=== PATIENT | male | born 1955 | race Caucasian/White ===

== ENCOUNTER 2017-12-29 21:20 | Observation (INO) | payer OTHER ==
[~2017-12-29] VITALS: Ht 170.2 cm; Wt 83.3 kg
[~2017-12-29 21:20] MED LIST: ASPIRIN BUFFER325 MG PO; COLACE100 MG PO; COREG25 M1 PO; LISINOPRIL40 MG PO; NORVASC10 MG PO; OxyCONTIN PO; PERCOCET 5/31 TABLET PO; SYNTHROID88 MCG PO; ZOCOR20 MG PO; oxyCODONE PO
[2017-12-29 21:47] LABS: HEMATOCRIT 41.4 % (38.0-50.0); HEMOGLOBIN 14.8 G/DL (12.5-16.6); MCH 34.6 PG (29.0-34.0); MCHC 35.7 G/DL (30.0-36.0); MCV 96.7 FL (86-99); PLATELET COUNT 198 K/uL (156-360); RBC DIS.WIDTH-CV 13.5 % (11.8-14.6); RBC DIS.WIDTH-SD 48.6 % (39-53); RED BLOOD COUNT 4.28 M/uL (4.00-5.50); WHITE BLOOD COUNT 7.4 K/uL (4.1-10.2)
[2017-12-29 21:57] LABS: PTT 26.3 SEC (25-37)
[2017-12-29 21:58] LABS: AMYLASE 62 IU/L (1-118)
[2017-12-29 21:59] LABS: CHLORIDE 106 mEq/L (99-109); POTASSIUM 4.4 mEq/L (3.7-5.4); SODIUM 140 mEq/L (136-147)
[2017-12-29 22:00] LABS: GLUCOSE 161 mg/dL (70-99)
[2017-12-29 22:04] LABS: CREATININE 1.5 mg/dL (0.6-1.3); GFR ESTIMATE (CALCULATED) 50 mL/min/ (58.99-99999)
[2017-12-29 22:05] LABS: UREA NITROGEN (BUN) 18 mg/dL (9-23)
[2017-12-29 22:07] LABS: LIPASE 11 U/L (1.0-51.0)
[2017-12-29 22:09] LABS: TROP-I INTERPRETATION NEGATIVE; TROPONIN-I 0.01 ng/mL (0.0-0.30)
[2017-12-29] MEDS ORDERED: NIFEDIPINE ER30 MG PO (23:10)
[2017-12-29] MEDS ORDERED: LISINOPRIL40 MG PO (23:10)
[2017-12-29] MEDS ORDERED: ASPIRIN325 MG PO (23:10)
[2017-12-29] MEDS ORDERED: NIFEDIPINE10 MG PO (23:11)
[2017-12-29] MEDS ORDERED: FISH OIL 1,0001 EAC7 PO (23:12)
[2017-12-30 00:35] VITALS: BP 138/75
[2017-12-30 02:44] LABS: HDL CHOLESTEROL 33 MG/DL (Desirable>=40); LDL CHOLESTEROL 176 mg/dL (Desirable<100); NON-HDL CHOLESTEROL 201 mg/dL (Desirable<160); TOTAL CHOLESTEROL 234 mg/dL (Desirable<200); TRIGLYCERIDES 127 MG/DL (Normal: <150)
[2017-12-30 05:29] VITALS: BP 127/78
[2017-12-30 08:42] VITALS: BP 175/85
[2017-12-30 10:17] LABS: HEMOGLOBIN A1c (GLYCOHEMOGLOB) 6.7 % (Below 5.7)
[2017-12-30 12:11] VITALS: BP 140/71
[2017-12-30 15:41] VITALS: BP 162/78
[2017-12-30 16:18] LABS: CHLORIDE 108 mEq/L (99-109); POTASSIUM 4.4 mEq/L (3.7-5.4); SODIUM 140 mEq/L (136-147)
[2017-12-30 16:19] LABS: GLUCOSE 142 mg/dL (70-99)
[2017-12-30 16:23] LABS: GFR ESTIMATE (CALCULATED) > 59 mL/min/ (58.99-99999)
[2017-12-30 16:24] LABS: UREA NITROGEN (BUN) 25 mg/dL (9-23)
[2017-12-30 20:20] VITALS: BP 179/83
[2017-12-31 00:35] VITALS: BP 126/76
[2017-12-31 04:10] VITALS: BP 124/95
[2017-12-31 07:20] VITALS: BP 146/88
[2017-12-31 11:32] VITALS: BP 135/81
[2018-01-01] MEDS ORDERED: PLAVIX75 MG PO (12:33)
== END 2017-12-31 12:12 | disposition home or self-care (01) ==
LOC: EME 21:20 → EDOF 23:34 → 4SOUTH 23:34 → EDOF 23:34 → 4SOUTH 12-30 00:19
PROVIDERS: Hospitalist; Physician Assistant Medical
PROC: B246ZZZ Ultrasonography of Right and Left Heart (ICD-10-PCS; principal; 2017-12-30)
DX: R42 Dizziness and giddiness (principal); R53.1 Weakness; N17.9 Acute kidney failure, unspecified; R94.02 Abnormal brain scan; I25.10 Atherosclerotic heart disease of native coronary artery without angina pectoris; Z95.5 Presence of coronary angioplasty implant and graft; I10 Essential (primary) hypertension; E78.5 Hyperlipidemia, unspecified; E03.9 Hypothyroidism, unspecified; Z90.49 Acquired absence of other specified parts of digestive tract; Z87.442 Personal history of urinary calculi; Z82.49 Family history of ischemic heart disease and other diseases of the circulatory system; Z79.82 Long term (current) use of aspirin; Z88.8 Allergy status to other drugs, medicaments and biological substances; R73.9 Hyperglycemia, unspecified; R91.8 Other nonspecific abnormal finding of lung field; I70.0 Atherosclerosis of aorta
CPT/HCPCS: 70450; 70551; 71046; 80048; 80061; 82150; 82948; 83036; 83690; 84484; 85027; 85610; 85730; 93005; 93306; 93880; 99281; 99285; G0378; J1644; J7030

== ENCOUNTER 2018-01-01 09:46 | Emergency (ER) | payer OTHER ==
[~2018-01-01] VITALS: Ht 170.2 cm; Wt 83.4 kg
[~2018-01-01 09:46] MED LIST changes: +ASPIRIN325 MG PO; +FISH OIL 1,0001 EAC7 PO; +NIFEDIPINE ER30 MG PO; +NIFEDIPINE10 MG PO
[2018-01-01 10:23] LABS: HEMATOCRIT 43.7 % (38.0-50.0); HEMOGLOBIN 15.5 G/DL (12.5-16.6); MCH 34.8 PG (29.0-34.0); MCHC 35.5 G/DL (30.0-36.0); PLATELET COUNT 201 K/uL (156-360); RBC DIS.WIDTH-CV 13.3 % (11.8-14.6); RBC DIS.WIDTH-SD 47.8 % (39-53); RED BLOOD COUNT 4.46 M/uL (4.00-5.50); WHITE BLOOD COUNT 6.2 K/uL (4.1-10.2)
[2018-01-01 10:33] LABS: CHLORIDE 108 mEq/L (99-109); POTASSIUM 4.9 mEq/L (3.7-5.4); SODIUM 138 mEq/L (136-147)
[2018-01-01 10:35] LABS: GLUCOSE 123 mg/dL (70-99)
[2018-01-01 10:39] LABS: CREATININE 1.3 mg/dL (0.6-1.3); GFR ESTIMATE (CALCULATED) > 59 mL/min/ (58.99-99999)
[2018-01-01 10:40] LABS: UREA NITROGEN (BUN) 26 mg/dL (9-23)
[2018-01-01] MEDS ORDERED: PLAVIX75 MG PO (12:33)
[2018-01-01 12:44] VITALS: BP 135/74
== END 2018-01-01 12:46 | disposition home or self-care (01) ==
LOC: EME 09:46
DX: G45.9 Transient cerebral ischemic attack, unspecified (principal); I10 Essential (primary) hypertension; E78.5 Hyperlipidemia, unspecified; I25.10 Atherosclerotic heart disease of native coronary artery without angina pectoris; Z95.5 Presence of coronary angioplasty implant and graft; Z79.82 Long term (current) use of aspirin; Z87.442 Personal history of urinary calculi; Z88.6 Allergy status to analgesic agent
CPT/HCPCS: 70450; 71046; 80048; 85027; 93005; 99281; 99285